=== PATIENT | female | born 1945 | race Caucasian/White ===

== ENCOUNTER → 2017-02-10 | Outpatient (CLI) | payer MEDICARE | END | disposition home or self-care (01) | LOC: PCVCIMAG 09:19 | PROVIDERS: ATTEND Internal Medicine Cardiovascular Disease | DX: I08.1 Rheumatic disorders of both mitral and tricuspid valves (principal); I10 Essential (primary) hypertension; I47.1 Supraventricular tachycardia | CPT/HCPCS: 93306 ==

== ENCOUNTER → 2017-09-07 | Outpatient (CLI) | payer MEDICARE ==
--- NOTE | 2017-09-07 16:14 | PCVCIMAG ---
EXAM: BILATERAL SUPERFICIAL VENOUS DUPLEX INDICATION: Leg pain and swelling. FINDINGS: Right leg: No thrombus in the common femoral, main femoral, or popliteal veins. These veins are compressible. Right Great Saphenous Vein: At the saphenofemoral junction the diameter is 11.8 mm, in the mid thigh it is 6.0 mm, and in the calf it is 7.7 mm. There is significant venous insufficiency/reflux throughout. Venous insufficiency/reflux duration is 6.6 seconds. Right Small Saphenous Vein: At the saphenopopliteal junction the diameter is 7.8 mm, and in the calf it is 5.5 mm. There is significant venous insufficiency/reflux throughout. Venous insufficiency/reflux duration is 0.8 seconds. There is not a cranial extension present. Left leg: No thrombus in the common femoral, main femoral, or popliteal veins. These veins are compressible. Left Great Saphenous Vein: At the saphenofemoral junction the diameter is 12.3 mm, in the mid thigh it is 8.9 mm, and in the calf it is 6.5 mm. There is significant venous insufficiency/reflux throughout. Venous insufficiency/reflux duration is 5.6 seconds. Left Small Saphenous Vein: At the saphenopopliteal junction the diameter is 5.9 mm, and in the calf it is 3.1 mm. There is significant venous insufficiency/reflux throughout. Venous insufficiency/reflux duration is 3.2 seconds. There is not a cranial extension present. IMPRESSION: Right Great Saphenous Vein: Significant venous insufficiency/reflux is present as noted above. Right Small Saphenous Vein: Significant venous insufficiency/reflux is present as noted above. Left Great Saphenous Vein: Significant venous insufficiency/reflux is present as noted above. Partially duplicated and tortuous in the thigh. Left Small Saphenous Vein: Significant venous insufficiency/reflux is present as noted above. Note is made this vein is small in size. LOC:[id number]
== END | disposition home or self-care (01) ==
LOC: PCVCIMAG 15:16
PROVIDERS: ATTEND Nuclear Medicine Nuclear Cardiology
DX: I87.2 Venous insufficiency (chronic) (peripheral) (principal); R60.9 Edema, unspecified; I49.1 Atrial premature depolarization; I05.9 Rheumatic mitral valve disease, unspecified; M79.605 Pain in left leg; M79.604 Pain in right leg; M79.89 Other specified soft tissue disorders; Z87.891 Personal history of nicotine dependence
CPT/HCPCS: 93970; G0463

== ENCOUNTER → 2017-11-10 | Outpatient (CLI) | payer MEDICARE | END | disposition home or self-care (01) | LOC: PCVCCLINIC 10:55 | DX: I34.0 Nonrheumatic mitral (valve) insufficiency (principal); I47.1 Supraventricular tachycardia; I49.1 Atrial premature depolarization; R60.9 Edema, unspecified; I45.10 Unspecified right bundle-branch block; Z87.891 Personal history of nicotine dependence | CPT/HCPCS: 93005; G0463 ==

== ENCOUNTER → 2017-12-15 | Outpatient (CLI) | payer MEDICARE | END | disposition home or self-care (01) | LOC: PCVCIMAG 10:10 | DX: I08.1 Rheumatic disorders of both mitral and tricuspid valves (principal); R00.2 Palpitations; E78.00 Pure hypercholesterolemia, unspecified; Z87.891 Personal history of nicotine dependence | CPT/HCPCS: 93005; 93306; G0463 ==

== ENCOUNTER → 2018-06-15 | Outpatient (CLI) | payer MEDICARE ==
--- NOTE | 2018-06-15 10:38 | PCVCIMAG ---
APPROVED REPORT Study performed: 06/15/2018 09:24:46 EXAM: Comprehensive 2D, Doppler, and color-flow Echocardiogram Patient Location: Echo lab Room #: 2Status: routine BSA: 1.86 HR: 75 bpmBP: 134/62 mmHg Rhythm: NSR Other Information Study Quality: Good Risk Factors: Cardiac Risk Factors: HTN, Hyperlipidemia Indications Mitral Valve Disease Mitral Valve Prolapse Palpitations 2D Dimensions LVEF(%): 67.56 (>50%) IVSd: 9.97 (7-11mm)LVOT Diam: 21.55 (18-24mm) LVDd: 46.22 mm PWd: 9.97 (7-11mm)Ascending Ao: 32.47 (22-36mm) LVDs: 28.90 (25-40mm) Left Atrium: 40.59 (27-40mm) Aortic Root: 29.49 mm LV Single Plane 4CH: 60.50 % LV Single Plane 2CH: 73.58 %Escamilla's LVEF: 67.04 % Biplane EF: 69.0 % Volumes Left Atrial Volume (Systole) Single Plane 4CH: 97.50 mLSingle Plane 2CH: 64.06 mL Biplane LA Volume: 79.00 mLLA ESV Index: 43.00 mL/m2 Aortic Valve AoV Peak Genaro.: 1.26 m/s AO Peak Gr.: 6.47 mmHgLVOT Max P.86 mmHg LVOT Max V: 0.95 m/s KARL Vmax: 2.76 cm2 Mitral Valve E/A Ratio: 1.5 MV Decel. Time: 137.04 ms MV E Max Genaro.: 0.67 m/s MV A Genaro.: 0.44 m/s Pulmonary Valve PV Peak Genaro.: 0.90 m/sPV Peak Gr.: 3.22 mmHg Pulmonary Vein P Vein S: 0.68 m/sP Vein A: 0.25 m/s P Vein D: 0.63 m/sP Vein A Dur.: 83.0 msec P Vein S/D Ratio: 1.08 Tricuspid Valve TR Peak Genaro.: 2.93 m/s TR Peak Gr.: 34.37 mmHg TV Vmax: 0.68 m/sPA Pressure: 41.00 mmHg Left Ventricle The left ventricle is normal size. There is normal LV segmental wall motion. There is normal left ventricular wall thickness. Left ventricular systolic function is normal. The left ventricular ejection fraction is within the normal range. LVEF is 65-70%. Right Ventricle The right ventricle is normal size. The right ventricular systolic function is normal. Atria Left atrium is moderately dilated. Interatrial septum is intact without evidence of ASD or PFO. Right atrium is severely dilated. Aortic Valve The aortic valve is normal in structure. No aortic regurgitation is present. There is no aortic valvular stenosis. Mitral Valve Normal anterior leaflet. The posterior leaflet is redundant with moderate prolapse. Moderate mitral regurgitation with an eccentric jet. No evidence of mitral valve stenosis. Moderate prolapse of the posterior mitral valve leaflet. Tricuspid Valve The tricuspid valve is normal in structure. Moderate to severe tricuspid regurgitation with a PA pressure of 41 mmHg Moderate pulmonary hypertension. Pulmonic Valve The pulmonary valve is normal in structure. There is no pulmonic valvular regurgitation. Great Vessels The aortic root is normal in size. The ascending aorta is normal in size. Aortic arch is normal in caliber. IVC is normal in size and collapses with >50% inspiration Pericardium There is no pericardial effusion. There is no pleural effusion. <Conclusion> The left ventricle is normal size. There is normal left ventricular wall thickness. Left ventricular systolic function is normal. The right ventricle is normal size. Left atrium is moderately dilated. Interatrial septum is intact without evidence of ASD or PFO. Right atrium is severely dilated. There is no aortic valvular stenosis. Normal anterior leaflet. The posterior leaflet is redundant with moderate prolapse. Moderate mitral regurgitation with an eccentric jet. Moderate to severe tricuspid regurgitation with a PA pressure of 41 mmHg Moderate pulmonary hypertension.
== END | disposition home or self-care (01) ==
LOC: PCVCIMAG 13:43
PROVIDERS: ATTEND Internal Medicine Cardiovascular Disease
DX: I08.1 Rheumatic disorders of both mitral and tricuspid valves (principal); I27.20 Pulmonary hypertension, unspecified; E78.5 Hyperlipidemia, unspecified; R60.9 Edema, unspecified; I47.9 Paroxysmal tachycardia, unspecified; Z88.8 Allergy status to other drugs, medicaments and biological substances; Z79.899 Other long term (current) drug therapy; Z87.891 Personal history of nicotine dependence
CPT/HCPCS: 93005; 93306; G0463

== ENCOUNTER → 2018-12-17 | Outpatient (CLI) | payer MEDICARE | END | disposition home or self-care (01) | LOC: PCVCCLINIC 12:14 | PROVIDERS: ATTEND Internal Medicine Cardiovascular Disease | DX: R00.2 Palpitations (principal); I47.9 Paroxysmal tachycardia, unspecified; I34.0 Nonrheumatic mitral (valve) insufficiency; R60.9 Edema, unspecified; M81.0 Age-related osteoporosis without current pathological fracture; E78.5 Hyperlipidemia, unspecified; I10 Essential (primary) hypertension; Z91.041 Radiographic dye allergy status; Z79.899 Other long term (current) drug therapy; Z88.8 Allergy status to other drugs, medicaments and biological substances | CPT/HCPCS: 93005; G0463 ==

== ENCOUNTER → 2019-07-05 | Outpatient (CLI) | payer MEDICARE ==
--- NOTE | 2019-07-05 15:06 | PCVCIMAG ---
APPROVED REPORT Study performed: 07/05/2019 14:04:23 EXAM: Comprehensive 2D, Doppler, and color-flow Echocardiogram Patient Location: Echo lab Status: routine BSA: 1.91 HR: 69 bpmBP: 160/60 mmHg Rhythm: NSR Other Information Study Quality: Adequate Indications Mitral valve Prolapse, Paroxysmal tachycardia, Mitral and tricuspid regurgitation. 2D Dimensions IVSd: 11.30 (7-11mm)LVOT Diam: 21.37 (18-24mm) LVDd: 50.19 mm PWd: 6.66 (7-11mm)Ascending Ao: 33.75 (22-36mm) LVDs: 38.10 (25-40mm) Left Atrium: 44.40 (27-40mm) Aortic Root: 35.61 mm LV Single Plane 4CH: 52.93 % LV Single Plane 2CH: 40.98 % Volumes Left Atrial Volume (Systole) Single Plane 4CH: 87.83 mLSingle Plane 2CH: 70.35 mL LA ESV Index: 46.00 mL/m2 Aortic Valve AoV Peak Genaro.: 1.12 m/s AO Peak Gr.: 5.02 mmHgLVOT Max P.41 mmHg LVOT Max V: 1.05 m/s KARL Vmax: 3.36 cm2 Mitral Valve E/A Ratio: 1.7 MV Decel. Time: 250.76 ms MV E Max Genaro.: 0.85 m/s MV A Genaro.: 0.50 m/s TDI E/Lateral E': 8.50E/Medial E': 7.73 Medial E' Genaro.: 0.11 m/s Lateral E' Genaro.: 0.10 m/s Pulmonary Valve PV Peak Gr.: 1.64 mmHg Pulmonary Vein P Vein S: 0.44 m/sP Vein A: 0.28 m/s P Vein D: 0.25 m/sP Vein A Dur.: 86.5 msec P Vein S/D Ratio: 1.76 Tricuspid Valve TR Peak Genaro.: 2.99 m/s TR Peak Gr.: 35.68 mmHg Left Ventricle The left ventricle is normal size. There is normal LV segmental wall motion. There is normal left ventricular wall thickness. Left ventricular systolic function is normal. The left ventricular ejection fraction is within the normal range. LVEF is 55-60%. Right Ventricle The right ventricle is normal size. The right ventricular systolic function is normal. Atria Left atrium is moderately dilated. Right atrium is dilated. Aortic Valve The aortic valve is normal in structure. No aortic regurgitation is present. There is no aortic valvular stenosis. Mitral Valve Mitral valve leaflets are thickened. Mild to moderate mitral regurgitation. No evidence of mitral valve stenosis. Posterior leaflet prolapse. Tricuspid Valve The tricuspid valve is normal in structure. Moderate tricuspid regurgitation. Pulmonary artery pressure is 43mmHg. Pulmonic Valve The pulmonary valve is normal in structure. There is no pulmonic valvular regurgitation. Great Vessels The aortic root is normal in size. IVC is normal in size and collapses >50% with inspiration. Pericardium There is no pericardial effusion. <Conclusion> The left ventricle is normal size. There is normal left ventricular wall thickness. Left ventricular systolic function is normal. The right ventricle is normal size. Left atrium is moderately dilated. Right atrium is dilated. The aortic valve is normal in structure. Posterior leaflet prolapse. Mild to moderate mitral regurgitation. Moderate tricuspid regurgitation. Pulmonary artery pressure is 43mmHg.
== END | disposition home or self-care (01) ==
LOC: PCVCIMAG 13:40
PROVIDERS: ATTEND Internal Medicine Cardiovascular Disease
DX: I08.1 Rheumatic disorders of both mitral and tricuspid valves (principal); I49.1 Atrial premature depolarization; I47.9 Paroxysmal tachycardia, unspecified; I87.2 Venous insufficiency (chronic) (peripheral); I47.1 Supraventricular tachycardia; Z87.891 Personal history of nicotine dependence; Z88.1 Allergy status to other antibiotic agents
CPT/HCPCS: 93005; 93306; G0463